=== PATIENT | female | born 1960 | race African-American/Black ===

== ENCOUNTER 2017-09-11 00:23 | Emergency (ER) | payer SELFPAY ==
[~2017-09-11] VITALS: Ht 154.9 cm; Wt 64.9 kg
[2017-09-11] MEDS ORDERED: ACETAMINOPHEN 325 MG TAB PO ONE ×2 (00:40→00:57)
[2017-09-11 08:45] VITALS: BP 147/84
== END 2017-09-11 10:30 | disposition left against medical advice (07) ==
LOC: ER 00:41
DX: R50.9 Fever, unspecified (principal); R53.1 Weakness; I25.2 Old myocardial infarction; J45.909 Unspecified asthma, uncomplicated; Z88.1 Allergy status to other antibiotic agents; Z88.6 Allergy status to analgesic agent; Z88.8 Allergy status to other drugs, medicaments and biological substances; Z53.29 Procedure and treatment not carried out because of patient's decision for other reasons
CPT/HCPCS: 71046; 93005

== ENCOUNTER 2017-09-12 03:29 | Emergency (ER) | payer SELFPAY ==
[~2017-09-12] VITALS: Ht 162.6 cm; Wt 95.3 kg
[2017-09-12 08:08] VITALS: BP 128/77
== END 2017-09-12 08:27 | disposition home or self-care (01) ==
LOC: ER 03:30
DX: G44.209 Tension-type headache, unspecified, not intractable (principal); J45.909 Unspecified asthma, uncomplicated; I25.2 Old myocardial infarction; Z86.718 Personal history of other venous thrombosis and embolism; Z87.898 Personal history of other specified conditions; Z88.5 Allergy status to narcotic agent; Z88.1 Allergy status to other antibiotic agents; Z88.8 Allergy status to other drugs, medicaments and biological substances
CPT/HCPCS: 70450